=== PATIENT | female | born 1990 | race Caucasian/White ===

== ENCOUNTER 2017-11-07 08:13 | Day surgery (SDC) | payer OTHER, MEDICAID ==
[2017-11-07] MEDS ORDERED: FENTAnyl 50 MCG/ML VIAL (10:18)
[2017-11-07] MEDS ORDERED: MIDAZOLAM 1 MG/ML 2 ML INJ ×3 (10:18)
== END 2017-11-07 11:09 | disposition home or self-care (01) ==
LOC: GIL 08:13
DX: R19.4 Change in bowel habit (principal); K21.9 Gastro-esophageal reflux disease without esophagitis; B96.81 Helicobacter pylori [H. pylori] as the cause of diseases classified elsewhere; K29.70 Gastritis, unspecified, without bleeding; K64.8 Other hemorrhoids
CPT/HCPCS: 43239; 84703; 88305